=== PATIENT | male | born 1970 | race African-American/Black ===

== ENCOUNTER 2020-07-15 10:42 | Inpatient (IN) | payer MEDICARE, OTHER ==
[2020-07-15] VITALS (10 sets, daily range): BP systolic 139–167; BP diastolic 71–84
[~2020-07-15] VITALS: Ht 177.8 cm; Wt 124.5 kg
[~2020-07-15 10:42] MED LIST: LISI1TAB23 PO; PRAV40TA2 PO
[2020-07-15 11:13] LABS: BASO % 1 % (0-3); EOS % 0 % (0-3); HEMATOCRIT 37.6 % (39.0-53.0); HEMOGLOBIN 12.3 g/dL (13.0-17.5); LYMPH # 0.6 x10^3/uL (1.0-4.8); LYMPH % 12 % (24-48); MEAN CORPUSCULAR HEMOGLOBIN 28 pg (25-35); MEAN CORPUSCULAR HGB CONC 33 g/dL (31-37); MEAN CORPUSCULAR VOLUME 85 fL (79-100); MONO # 0.4 x10^3/uL (0.0-1.1); MONO % 7 % (0-9); NEUT % 80 % (31-73); PLATELET COUNT 248 x10^3/uL (140-400); RED BLOOD COUNT 4.42 x10^6/uL (4.30-5.70); RED CELL DISTRIBUTION WIDTH 17.8 % (11.5-14.5); WHITE BLOOD COUNT 5.1 x10^3/uL (4.0-11.0)
[2020-07-15 11:21] LABS: CALCIUM 8.7 mg/dL (8.5-10.1); CREATININE 0.9 mg/dL (0.7-1.3); GFR 108.1; POTASSIUM 3.2 mmol/L (3.5-5.1)
[2020-07-15] MEDS ORDERED: IOHEXOL 350 MG/ML 100 ML VIAL. IV ONE (11:30)
[2020-07-15] MEDS ORDERED: CONTRAST GIVEN. MC PRN (11:30)
--- NOTE | 2020-07-15 12:09 | EKG ---
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
[2020-07-15] MEDS ORDERED: ATOR10TA60 PO (12:39)
[2020-07-15] MEDS ORDERED: LISI1TAB37 PO (12:39)
[2020-07-15] MEDS ORDERED: METO-239 PO (12:39)
--- NOTE | 2020-07-15 12:39 | RAD ---
EXAM: CTA CHEST_ABDOMEN_AND PELVIS, XR CHEST 2V INDICATION: Reason: chest pain, HTN, concern for dissection / Spl. Instructions: IV OMNI 350 90 MLS / History: . TECHNIQUE: Single view COMPARISON: None FINDINGS: The heart size is normal. The great vessels appear unremarkable. The mediastinum appears widened. No shift. The lungs are clear. There is no pleural effusion or pneumothorax. There are no significant osseous abnormalities. IMPRESSION: Nonspecific mediastinal widening, better evaluated on CT chest with IV contrast as clinically warrant ed. EXAM: CT Chest, Abdomen, and Pelvis with and without IV contrast INDICATION: Reason: chest pain, HTN, concern for dissection / Spl. Instructions: IV OMNI 350 90 MLS / History: TECHNIQUE: Multi-detector row CT images were acquired from the thoracic inlet through the ischial tu berosities with and without the use of IV contrast, images acquired in the systemic arterial phase of enhancement. Sagittal and coronal images were acquired from the transaxial data. All CT scans perfor med at this facility utilize dose optimization techniques as appropriate to the exam, including the f ollowing: Automated exposure control and adjustment of the mA and/or KV according to patient size (th is includes techniques or standardized protocols for targeted exams where dose is indication/reason f or exam). IV CONTRAST: Administered ORAL CONTRAST: Not administered COMPARISON: None FINDINGS: CHEST: CARDIOVASCULAR: Patent, normal caliber systemic arteries with no evidence of arterial dissection or aneurysm. The pulmonary arteries are incidentally well opacified and show no evidence of pulmonary em boli. MEDIASTINUM & VIOLETTA: Bulky mediastinal adenopathy is present throughout the mediastinal levels and marya ateral bulky hilar adenopathy is also present. The largest mass at the left thoracic inlet measures 5 .3 cm in diameter but is only partially imaged of the fully imaged mediastinal nodes, the right lower paratracheal node measures 2.6 cm and is along the largest nodes present.. LUNGS: No pulmonary infiltrate, nodule, or other focal abnormality. PLEURAL SPACE: Small left pleural effusion. No pneumothorax. OSSEOUS & SOFT TISSUE: Unremarkable ABDOMEN/PELVIS: LIVER: Unremarkable BILIARY SYSTEM: Gallbladder is unremarkable. Bile ducts are not dilated. PANCREAS: Unremarkable SPLEEN: Unremarkable ADRENALS: Unremarkable KIDNEYS & URETERS: Mild right hydronephrosis and hydroureter is present with no radiopaque stones id entified in the urinary tract. BLADDER: Unremarkable REPRODUCTIVE ORGANS: Prostate measures 5 cm in diameter. GASTROINTESTINAL: The stomach, small bowel, and colon are unremarkable. The appendix is normal. MESENTERY/PERITONEUM/RETROPERITONEUM: Unremarkable. No significant ascites or fluid collection. No fr ee air. VASCULAR: Unremarkable. There is no evidence of arterial dissection, flow-limiting stenosis or occlu darline. There is normal variant aortic origin of the left gastric artery LYMPH NODES: There is bulky retroperitoneal adenopathy, largest measuring 5.[address] in the left para-aortic region just below the left renal artery. There is a mildly enlarged right pelvic sidewall lymph node measuring 1.4 cm (image 268 of series 2).. OSSEOUS & SOFT TISSUES: Mild sclerosis at the anterior superior aspect of T12 is present in the sett ing of endplate degenerative changes. IMPRESSION: 1. No evidence of aortic dissection. 2. Extensive thoracic and abdominal adenopathy in a pattern suspicious for a lymphoproliferative diso rder. The mass in the lower left neck may be amenable to tissue sampling via percutaneous approach wi th ultrasound guidance if clinically warranted. 3. Sclerosis at the anterior aspect of the T12 vertebral body. While this could represent sequela of degenerative change, in the setting of findings suspicious for malignancy, consider MRI of the thorac ic and lumbar spine with and without IV contrast in further evaluation as an osteoblastic metastasis is not confidently excluded. Correlation with serum PSA levels and other clinical markers for prostat e cancer is also suggested. 4. Mild findings of right obstructive uropathy. Electronically signed by: Samantha Hill MD (07/15/2020 12:37 PM) [id number]
--- NOTE | 2020-07-15 13:20 | ED.ADGEN ---
Past Medical History Past Medical History: Diabetes-Type II, Hypertension Past Surgical History: No Surgical History, Other Additional Past Surgical Histo: biopsy lymph node Smoking Status: Never Smoker Alcohol Use: None Drug Use: None General Adult EDM: Chief Complaint: HYPERTENSION HPI: HPI: Patient is a 52-year-old male with past medical history of hypertension who presents to the emergency room from Dr. Amaya's office for concern of hypertension emergency and possible aortic dissection. Patient went into clinic today because he had developed a substernal chest pain that is sharp with a pressure component that radiates into his back. This is been constant since last night. Upon arrival to Dr. Amaya's clinic this morning patient was hypertensive. He states he did not realize he was hypertensive until he got to clinic. He denies any associated symptoms. Of note he did recently get a biopsy done of his neck due to lymphadenopathy. Review of Systems: Review of Systems: Complete ROS is negative unless otherwise documented in HPI Current Medications: Current Medications Medications (Trade) Dose Ordered Sig/Dutch Start Time Stop Time Status Last Admin Dose Admin Info (CONTRAST GIVEN -- Rx MONITORING) 1 each PRN DAILY PRN 07/15/20 11:30 07/17/20 11:29 Iohexol (Omnipaque 350 Mg/ml) 95 ml 1X ONCE 07/15/20 11:30 07/15/20 11:31 DC 07/15/20 11:31 90 ML Nicardipine HCl 50 mg/Sodium Chloride 250 ml @ 25 mls/hr CONT PRN 07/15/20 10:45 07/15/20 11:43 25 MLS/HR Allergies: Allergies: Allergies Coded Allergies Type Severity Reaction Last Updated Verified No Known Drug Allergies 06/18/13 No Physical Exam: PE: General: Awake, alert, NAD. Well Nourished, well hydrated. Cooperative HEENT: Atraumatic, EOMI, PERRL, airway patent, moist oral mucosa Neck: Supple, trachea midline Respiratory: CTA bilaterally, normal effort, no wheezing/crackles CV: RRR, no murmur, cap refill <2 GI: Soft, nondistended, nontender, no masses MSK: No obvious deformities Skin: Warm, dry, intact Neuro: A&O x3, speech NL, sensory and motor grossly intact, no focal deficits Psych: Normal affect, normal mood, not suicidal or homicidal Current Patient Data: Labs: Laboratory Tests Test 3/1/21 11:00 White Blood Count 5.1 x10^3/uL (4.0-11.0) Red Blood Count 4.42 x10^6/uL (4.30-5.70) Hemoglobin 12.3 g/dL (13.0-17.5) L Hematocrit 37.6 % (39.0-53.0) L Mean Corpuscular Volume 85 fL (79-100) Mean Corpuscular Hemoglobin 28 pg (25-35) Mean Corpuscular Hemoglobin Concent 33 g/dL (31-37) Red Cell Distribution Width 17.8 % (11.5-14.5) H Platelet Count 248 x10^3/uL (140-400) Neutrophils (%) (Auto) 80 % (31-73) H Lymphocytes (%) (Auto) 12 % (24-48) L Monocytes (%) (Auto) 7 % (0-9) Eosinophils (%) (Auto) 0 % (0-3) Basophils (%) (Auto) 1 % (0-3) Neutrophils # (Auto) 4.0 x10^3/uL (1.8-7.7) Lymphocytes # (Auto) 0.6 x10^3/uL (1.0-4.8) L Monocytes # (Auto) 0.4 x10^3/uL (0.0-1.1) Eosinophils # (Auto) 0.0 x10^3/uL (0.0-0.7) Basophils # (Auto) 0.0 x10^3/uL (0.0-0.2) Sodium Level 139 mmol/L (136-145) Potassium Level 3.2 mmol/L (3.5-5.1) L Chloride Level 102 mmol/L (98-107) Carbon Dioxide Level 31 mmol/L (21-32) Anion Gap 6 (6-14) Blood Urea Nitrogen 10 mg/dL (8-26) Creatinine 0.9 mg/dL (0.7-1.3) Estimated GFR (Cockcroft-Gault) 108.1 Glucose Level 223 mg/dL (70-99) H Calcium Level 8.7 mg/dL (8.5-10.1) Troponin I Quantitative 0.021 ng/mL (0.000-0.055) Laboratory Tests 07/15/20 11:00 Laboratory Tests 07/15/20 11:00 Vital Signs: Vital Signs Date Time Temp Pulse Resp B/P (MAP) Pulse Ox O2 Delivery O2 Flow Rate FiO2 07/15/20 12:28 82 16 100 07/15/20 11:06 99.1 199/109 (139) Room Air 99.1 EKG: EKG: [] Heart Score: Risk Factors: Risk Factors: DM, Current or recent (<one month) smoker, HTN, HLP, family history of CAD, obesity. Risk Scores: Score 0 - 3: 2.5% MACE over next 6 weeks - Discharge Home Score 4 - 6: 20.3% MACE over next 6 weeks - Admit for Clinical Observation Score 7 - 10: 72.7% MACE over next 6 weeks - Early Invasive Strategies Radiology/Procedures: Radiology/Procedures: [] Course & Med Decision Making: Course & Med Decision Making Pertinent Labs and Imaging studies reviewed. (See chart for details) Patient is a 50-year-old male who presents to the emergency room from his primary care physician's office for concern of hypertension emergency. His physician was also concerned about a possible aortic dissection. Patient will be started on nicardipine drip and a CT angio was done to evaluate for aortic dissection or any other causes of patient's symptoms. Lab work is unremarkable. CT does show significant lymphadenopathy concerning for lymphoma. I have discussed the results with Dr. Amaya who will discuss the results with the patient. Patient will be admitted on a nicardipine drip. Simonaon Disclaimer: Avis Disclaimer: This electronic medical record was generated, in whole or in part, using a voice recognition dictation system. Departure Departure Impression: Primary Impression: Hypertensive emergency without congestive heart failure Disposition: ADMITTED INPT THIS HOSP Condition: IMPROVED Referrals: RENZO AMAYA MD (PCP) OPAL MORIN MD Jul 15, 2020 13:19
[2020-07-15] MEDS: ACETAMINOPHEN 325 MG TABLET. PO PRN (18:32)
[2020-07-15] MEDS ORDERED: POTASSIUM CHLORIDE 20 MEQ TABLET.ER. PO ONE (20:00)
[2020-07-16] VITALS (17 sets, daily range): BP systolic 127–170; BP diastolic 74–99
[2020-07-16] MEDS: ACETAMINOPHEN 325 MG TABLET. PO PRN (04:37)
[2020-07-16 05:34] LABS: BASO % 1 % (0-3); EOS % 1 % (0-3); HEMATOCRIT 39.8 % (39.0-53.0); HEMOGLOBIN 12.9 g/dL (13.0-17.5); LYMPH # 0.5 x10^3/uL (1.0-4.8); LYMPH % 11 % (24-48); MEAN CORPUSCULAR HEMOGLOBIN 27 pg (25-35); MEAN CORPUSCULAR HGB CONC 32 g/dL (31-37); MEAN CORPUSCULAR VOLUME 85 fL (79-100); MONO # 0.3 x10^3/uL (0.0-1.1); MONO % 6 % (0-9); NEUT # 3.6 x10^3/uL (1.8-7.7); NEUT % 81 % (31-73); PLATELET COUNT 257 x10^3/uL (140-400); RED CELL DISTRIBUTION WIDTH 17.2 % (11.5-14.5); WHITE BLOOD COUNT 4.4 x10^3/uL (4.0-11.0)
[2020-07-16 05:44] LABS: CALCIUM 8.2 mg/dL (8.5-10.1); CHOLESTEROL/HDL RATIO 3.9; CREATININE 0.8 mg/dL (0.7-1.3); GFR 123.8; MAGNESIUM 1.9 mg/dL (1.8-2.4); POTASSIUM 3.2 mmol/L (3.5-5.1)
--- NOTE | 2020-07-16 08:54 | PDOC ---
Provider Note Date of Service: DATE: 07/16/20 TIME: 08:50 Provider Note [id number] new finding nodes in chest, recent neck mass biopsy pending, likelylymphoma- switch from iv nicard to po amlo, add metformin, transfer, onco consult Justifications for Admission Other Justification RENZO SOSA MD Jul 16, 2020 08:54
--- NOTE | 2020-07-16 09:18 | HP ---
ADMIT DATE: CHIEF COMPLAINT: Chest pain and high blood pressure. HISTORY OF PRESENT ILLNESS: A 50-year-old black male with known type 2 diabetes and hypertension, was transferred to the ER for our office with aching, pressure-like chest pain in the upper chest and back associated with really high blood pressure. The concern was an aortic dissection, but CT scanning showed evidence of diffuse bulky lymphadenopathy in the chest and even in the abdomen, raising the question of a known diagnosis of lymphoma. He has recently had an anterior neck mass biopsied at [facility] under the care of Dr. Lara Amaya and the results of that are pending at this time, but certainly consistent with lymphoma. He has been on IV nicardipine throughout the night, his blood pressure is improved and feeling better in regards to the onset of symptoms. PAST MEDICAL HISTORY: Recent A1c was 7.5 on no medication though he has lost some weight. MEDICATIONS: His blood pressure meds are lisinopril HCT, and metoprolol. He has taken amlodipine in the past. ALLERGIES: No drug allergies. No other serious medical problems. SOCIAL HISTORY: Nonsmoker, nondrinker, , employed. FAMILY HISTORY: Unremarkable with no known cancers that I am aware of. REVIEW OF SYSTEMS: No other complaints. PHYSICAL EXAMINATION: ENT: All within normal limits. NECK: No nodes, masses, or thyroid enlargement except for the anterior left cervical mass, this got dressing. LUNGS: Clear. CARDIOVASCULAR: Regular rate. No murmur. ABDOMEN: No obvious hepatosplenomegaly, masses or nodes. EXTREMITIES: Good pedal and radial pulses. No focal findings. NEUROLOGIC: Physiologic. ASSESSMENT: 1. Chest pain caused by hypertension, likely from aortic stretch, which is improved with blood pressure control. 2. Type 2 diabetes mellitus, fair control on diet. 3. Left anterior lymphadenopathy and diffuse adenopathy in the chest and abdomen, raising the question of a diagnosis of lymphoma with this disorder. 4. Recent elevated PSA 23. PLAN: Oncology consultation ____ results of the biopsy of his neck mass. We will switch from nicardipine to oral amlodipine at this time and start metformin for his diabetes and recheck his PSA in case of a false positive elevation. It is not likely that prostate cancer would cause the degree of adenopathy present without any obvious bone findings. RENZO AMAYA MD DR: ITZ/anna JOB#: [id number] / [id number]
[2020-07-16] MEDS: hydroCHLOROthiazide 12.5 MG CAPSULE PO SCH (09:46)
[2020-07-16] MEDS: ATORVASTATIN CALCIUM 10 MG TABLET. PO SCH (09:46)
[2020-07-16] MEDS: POTASSIUM CHLORIDE 10 MEQ TABLET.ER. PO SCH ×3 (09:47→18:22)
[2020-07-16] MEDS: LISINOPRIL 20 MG TABLET PO SCH (09:48)
[2020-07-16] MEDS: amLODIPine BESYLATE 5 MG TABLET PO SCH (09:48)
[2020-07-16] MEDS: METOPROLOL SUCC 24HR ER 25 MG TAB.ER.24H. PO SCH (09:49)
[2020-07-16 11:24] LABS: URIC ACID 3.3 mg/dL (3.5-7.2)
--- NOTE | 2020-07-16 13:06 | NUR ---
SS following for discharge planning. SS reviewed pt chart and discussed with pt RN. Pt is from home with spouse and is currently on room air. SS will continue to follow for discharge planning.
--- NOTE | 2020-07-16 21:04 | NUR ---
PT BLOOD SUGAR RESULT AT HS 306 ,DR SOSA NOTIFIED ORDER RECEIVED TO GIVE METFORMIN, AWARE OF PREVIOUS CT ABDOMEN/PELVIS AND RENAL FUNCTION, STATED PT RENAL FUNCTION WAS OK TO GIVE MED. PMRN
[2020-07-16] MEDS ORDERED: metFORMIN 500 MG TABLET PO ONE (21:30)
[2020-07-17 03:22] VITALS: BP 168/98
[2020-07-17 07:00] VITALS: BP 173/107
[2020-07-17] MEDS: LISINOPRIL 20 MG TABLET PO SCH (08:28)
[2020-07-17] MEDS: hydroCHLOROthiazide 12.5 MG CAPSULE PO SCH (08:28)
[2020-07-17] MEDS: amLODIPine BESYLATE 5 MG TABLET PO SCH (08:29)
[2020-07-17] MEDS: POTASSIUM CHLORIDE 10 MEQ TABLET.ER. PO SCH (08:29)
[2020-07-17] MEDS: METOPROLOL SUCC 24HR ER 25 MG TAB.ER.24H. PO SCH (08:30)
[2020-07-17] MEDS: ATORVASTATIN CALCIUM 10 MG TABLET. PO SCH (08:30)
[2020-07-17] MEDS ORDERED: amLODIPine BESYLATE 5 MG TABLET PO ONE (08:45)
--- NOTE | 2020-07-17 08:46 | PDOC ---
FOLLOW UP Oncology note: Noted consult for Steve Rangel, a 50-year-old male admitted for hypertensive urgency. Patient was recently seen by Dr. Lara Amaya for cervical lymphadenopathy. He underwent biopsy of cervical lymph node at [facility] with clinical suspicion for lymphoma. Assessment: Generalized lymphadenopathy Hypertensive urgency Recommendations: -Pathology is pending at this time at [facility]. Full consult to follow after pathology report is finalized -Reviewed CT of the chest, abdomen pelvis -Plan PET/CT and bone marrow biopsy after diagnosis is confirmed. Can pursue PET/CT as outpatient -Continue with supportive care at this time Please call me directly at [phone] with any questions or concerns DAHLIA RAMOS MD Jul 17, 2020 08:46
--- NOTE | 2020-07-17 09:03 | PDOC ---
Provider Note Date of Service: DATE: 07/17/20 TIME: 09:04 Provider Note [id number] Justifications for Admission Other Justification RENZO SOSA MD Jul 17, 2020 09:03
--- NOTE | 2020-07-17 09:44 | DS ---
DATE OF DISCHARGE: 07/17/2020 HOSPITAL SUMMARY: A 50-year-old black male admitted with aching chest pain and upper back pain that was suspicious for hypertensive emergency with possible aortic dissection. CT scan revealed a normal aorta, but had large amount of thoracic and abdominal lymphadenopathy. There was minimal right hydronephrosis as well noted. Laboratory studies showed elevated blood sugars. The CBC and chemistry profile unremarkable. Iron and TIBC were low. Protein electrophoresis is pending. B12 is 268. PSA was 14, where as an outpatient it had been 23. Ferritin was high at 522. Hepatitis B, C, HIV and serology was negative. He was treated with IV nicardipine over the first 12 hours and then oral amlodipine was started at that point. Blood sugars were elevated and metformin was started, though he only received 1 or 2 doses prior to dismissal. Outpatient neck biopsy showed evidence of prostate cancer that was metastatic to lymph nodes and likely the source of diffuse lymphadenopathy. He has a Urology appointment soon and will be followed by Dr. Gan at [facility] with new diagnosis of prostate cancer, metastatic to lymphadenopathy and is able to be followed as an outpatient. FINAL DIAGNOSES: 1. Chest and upper back pain secondary to severe hypertension. 2. Type 2 diabetes mellitus, poorly controlled. 3. New diagnosis of prostate cancer, metastatic to lymph nodes in the chest, abdomen and neck. OPERATIONS, PROCEDURES, COMPLICATIONS: None. CONSULTATIONS: Dr. Bee. DISPOSITION: He will see Dr. Gan in the next few days for treatment planning and further evaluation including bone scan. He will not need a prostate biopsy at this point as the diagnosis is confirmed. We will add amlodipine 10 mg to the home meds as well as metformin 500 mg twice a day and balance each according to response. Possibility of renal artery stenosis from lymphadenopathy must be considered given his hypertension, but now be evaluated as an outpatient. Diabetic diet, low sodium intake. Follow up with me in 1-2 weeks regarding diabetes and hypertension. PROGNOSIS: Guarded. RENZO SOSA MD DR: ITZ/anna JOB#: [id number] / [id number]
--- NOTE | 2020-07-17 09:53 | NUR ---
SS following up with discharge planning. SS reviewed pt chart and discussed with pt RN. Pt is currently on room air. Discharge order on the chart for home with self care.
[2020-07-17 11:00] VITALS: BP 172/102
--- NOTE | 2020-07-17 13:02 | NUR ---
Discharge Note: RUMA SAMANIEGO [address] Discharge instructions and discharge home medications reviewed with Patient and a copy given. All questions have been answered and understanding verbalized. The following instructions and handouts were given: HTN, Low sodium diet Patient discharged to home with self care via spouse and private vehicle. was concerened with BP prior to discharge, advised we gave 5mg more of amlodipine and phoned Dr. Amaya. Per Dr. Amaya he did not want to add anything more for BP due to just starting the amlodipine. Stated pt could stay if wanted, but was stable from his standpoint. Pt and decided that they would be ok with leaving as they had a follow up with Urology at 1:30pm today. IV out, monitor off and left at nurses station. Advised to call if they had any other questions.
[2020-07-17] MEDS ORDERED: metFORMIN 500 MG TABLET PO SCH (17:00)
[2020-07-17 17:10] LABS: KAPPA FREE 12.6 mg/L (3.3-19.4)
[2020-07-18] MEDS ORDERED: amLODIPine BESYLATE 5 MG TABLET PO SCH (09:00)
[2020-07-18 20:36] LABS: ALBUM 2.7 g/dL (2.9-4.4); ALPHA 1 0.3 g/dL (0.0-0.4); ALPHA 2 1.3 g/dL (0.4-1.0); GAMMA 0.7 g/dL (0.4-1.8); PROTEIN TOTAL 5.9 g/dL (6.0-8.5); SPEP AG RATIO 0.8 (0.7-1.7)
== END 2020-07-17 13:00 | disposition home or self-care (01) | DRG 305 ==
LOC: ER 10:42 → 1 WEST ICU 12:35 → 2 SOUTH 07-16 11:30
PROVIDERS: ADMIT Family Medicine; ATTEND Family Medicine
DX: I16.1 Hypertensive emergency (principal); C77.8 Secondary and unspecified malignant neoplasm of lymph nodes of multiple regions; N13.30 Unspecified hydronephrosis; I10 Essential (primary) hypertension; E11.65 Type 2 diabetes mellitus with hyperglycemia; C61 Malignant neoplasm of prostate; M54.6 Pain in thoracic spine
CPT/HCPCS: 36415; 71046; 71275; 74174; 80048; 80061; 82607; 82668; 82728; 82962; 83010; 83520; 83540; 83550; 83735; 84165; 84484; 84550; 85025; 85045; 86703; 86704; 86706; 86803; 87340; 93005; 99285; G0103; J3490; J7050; Q9967; G0378; J7030